=== PATIENT | female | born 1990 | race American Indian/Alaskan Native ===

== ENCOUNTER 2018-08-11 19:42 | Emergency (ER) | payer BC, OTHER ==
--- NOTE | 2018-08-11 20:01 | EDM.PDOC ---
ED HPI GENERAL MEDICAL PROBLEM - General Chief Complaint: Back Pain or Injury Stated Complaint: FALL FROM HORSE Time Seen by Provider: 08/11/18 19:43 Source of Information: Reports: Patient - History of Present Illness INITIAL COMMENTS - FREE TEXT/NARRATIVE: 28-year-old female presents emergency room after being thrown off a horse this occurred shortly before arrival, however patient had time to go home and get cleaned up. She did not hit her head did not have loss of consciousness all her pain is in the right buttocks and hip region. She is not noticing bleeding with urination no loss of bowel or bladder control. She has no pain shooting down her legs she has some mild thigh discomfort. She denies any breathing difficulty shortness of breath nausea or vomiting. - Related Data Allergies Allergy/AdvReac Type Severity Reaction Status Date / Time No Known Allergies Allergy Verified 08/11/18 19:51 Past Medical History - Past Health History Medical/Surgical History: Denies Medical/Surgical History Social & Family History - Tobacco Use Smoking Status *Q: Never Smoker - Caffeine Use Caffeine Use: Reports: None - Recreational Drug Use Recreational Drug Use: No ED ROS GENERAL - Review of Systems Review Of Systems: See Below Constitutional: Reports: No Symptoms HEENT: Reports: No Symptoms Respiratory: Reports: No Symptoms Cardiovascular: Reports: No Symptoms Endocrine: Reports: No Symptoms GI/Abdominal: Reports: No Symptoms. Denies: Constipation, Diarrhea, Vomiting : Reports: No Symptoms. Denies: Dysuria, Flank Pain, Frequency, Irregular Menses, Urgency Musculoskeletal: Reports: Back Pain Skin: Reports: No Symptoms Neurological: Reports: No Symptoms ED EXAM,LOWER BACK PAIN/INJURY - Physical Exam Exam: See Below Exam Limited By: No Limitations General Appearance: Alert, No Apparent Distress Head: Atraumatic, Normocephalic Neck: Normal Inspection, Supple, Non-Tender, Full Range of Motion Respiratory/Chest: No Respiratory Distress, Lungs Clear, Normal Breath Sounds, No Accessory Muscle Use, Chest Non-Tender Cardiovascular: Normal Peripheral Pulses, Regular Rate, Rhythm, No Edema, No Gallop, No JVD, No Murmur, No Rub GI/Abdominal: Normal Bowel Sounds, Soft, Non-Tender, No Organomegaly, No Distention, No Abnormal Bruit, No Mass Back Exam: Decreased Range of Motion, Muscle Spasm, Paraspinal Tenderness, Vertebral Tenderness, Other (Patient is significant back pain in the lower lumbar area but it seems to get better and all of her symptoms seem to be in lower lumbar region) Course - Vital Signs Last Recorded V/S: Last Vital Signs Temp 36.8 C 08/11/18 19:49 Pulse 98 08/11/18 19:49 Resp 18 08/11/18 19:49 BP 139/86 08/11/18 19:49 Pulse Ox 100 08/11/18 19:49 - Orders/Labs/Meds Orders: Active Orders 24 hr Category Date Time Status Hip Min 1V Lt [CR] Stat Exams 08/11/18 19:57 Ordered Hip Min 1V Rt [CR] Stat Exams 08/11/18 19:57 Ordered Lumbar Spine 2 or 3V [CR] Stat Exams 08/11/18 19:57 Taken Pelvis 1V or 2V [CR] Stat Exams 08/11/18 19:57 Taken Labs: Laboratory Tests 08/11/18 08/11/18 Range/Units 20:05 20:05 Urine Color Yellow (Yellow) Urine Appearance Slt cloudy H (Clear) Urine pH 5.5 (5.0-8.0) Ur Specific [place] > or = 1.030 (1.005-1.030) Urine Protein 1+ H (Negative) Urine Glucose (UA) Negative (Negative) Urine Ketones Negative (Negative) Urine Occult Blood Negative (Negative) Urine Nitrite Negative (Negative) Urine Bilirubin Negative (Negative) Urine Urobilinogen 0.2 (0.2-1.0) Ur Leukocyte Esterase Negative (Negative) Urine RBC 0-5 (0-5) /hpf Urine WBC 0-5 (0-5) /hpf Ur Squamous Epith Cells 5-10 H (0-5) /hpf Urine Bacteria Few (FEW) /hpf Urine Mucus Moderate H (FEW) /hpf Urine HCG, Qual Negative (NEGATIVE) - Re-Assessments/Exams Free Text/Narrative Re-Assessment/Exam: 08/11/18 21:12 Patient remained stable here in the emergency department had x-rays of her pelvis with good nephews of her hips to exclude anything involving or the pelvis. Lumbosacral's views were negative for acute fracture dislocation as well. Discussed pain management with the patient she thinks she'll do fine with Naprosyn and Tylenol. Departure - Departure Time of Disposition: 21:13 Disposition: Home, Self-Care 01 Clinical Impression: Contusion of right hip, Contusion of pelvis - Discharge Information Referrals: PCP,None [Primary Care Provider] - Forms: ED Department Discharge Additional Instructions: Return to emergency room if any questions problems worsening symptoms. Use Tylenol or Naprosyn as needed for discomfort he can take Tylenol 650 mg every 4 hours as needed or 1000 mg every 6 hours as needed. You can also use naproxen or Naprosyn 2 tablets of the [id number] variety with breakfast and supper daily and if needed he can take both Tylenol and Naprosyn together. Follow-up with your regular provider in a couple of days his if needed. If you don't do not have one you can follow-up with [facility] [phone] - My Orders Last 24 Hours: My Active Orders 08/11/18 19:57 Hip Min 1V Lt [CR] Stat Hip Min 1V Rt [CR] Stat Lumbar Spine 2 or 3V [CR] Stat Pelvis 1V or 2V [CR] Stat - Assessment/Plan Last 24 Hours: My Active Orders 08/11/18 19:57 Hip Min 1V Lt [CR] Stat Hip Min 1V Rt [CR] Stat Lumbar Spine 2 or 3V [CR] Stat Pelvis 1V or 2V [CR] Stat
--- NOTE | 2018-08-12 08:54 | CR ---
Lumbar spine: AP and lateral views of the lumbar spine were obtained. Comparison: No previous lumbar spine imaging. Disc spaces are preserved. Minimal scattered endplate osteophytes are seen. Pedicles are intact. Transverse and spinous processes are intact. Pseudoarticulation is identified within an enlarged left transverse process at L5 to the sacrum compatible with partial transitional segment. Impression: 1. Partial transitional segment at the lumbosacral junction on the left side. This is a normal variant but can be symptomatic. 2. Mild scattered endplate osteophytes. 3. Nothing acute is appreciated on two-view lumbar spine exam. Diagnostic code #2
--- NOTE | 2018-08-12 08:54 | CR ---
Pelvis: AP view of the pelvis was obtained. Comparison: No prior pelvis exam. Joint spaces within both hips are maintained. Sacroiliac joints are unremarkable. Transitional segment is again seen with pseudoarticulation of an enlarged transverse process of L5 to the sacrum on the left side. No fracture or other abnormality is identified. Impression: 1. Transitional segment again noted. 2. AP pelvis study is otherwise unremarkable. Diagnostic code #2
== END 2018-08-11 21:26 | disposition home or self-care (01) ==
LOC: JD.ED 19:42
DX: S70.01XA Contusion of right hip, initial encounter (principal); S30.0XXA Contusion of lower back and pelvis, initial encounter; V80.010A Animal-rider injured by fall from or being thrown from horse in noncollision accident, initial encounter
CPT/HCPCS: 72100; 72100-26; 72170; 72170-26; 81001; 81025; 99282; 99284-25